=== PATIENT | male | born 1945 | race Caucasian/White ===

== ENCOUNTER → 2023-01-10 | Outpatient (CLI) | payer MEDICARE ==
[2023-01-10 15:12] LABS: INR 0.9 (<1.2); Prothrombin Time 9.7 sec (9.0-12.0)
[2023-01-10 20:56] LABS: HCT 41.3 % (39.6-50.0); HGB 13.7 d/dL (13.0-17.0); MCH 29.8 pg (27.0-32.0); MCHC 33.2 d/dL (32.0-37.0); MCV 89.8 FL (80.0-97.0); NRBC Per 100 WBC 0 X 10*3/uL (0.00-0.01); Platelet Count 263 X 10*3/uL (140-440); RDW 13.7 % (11.5-14.5); WBC 7.47 X 10*3/uL (4.50-10.00)
[2023-01-10 21:01] LABS: ALT 28 U/L (10-49); AST 22 U/L (14-35); Albumin 4.5 d/dL (3.8-4.9); Albumin/Globulin Ratio 1.96 Ratio (1.60-3.17); Alkaline Phosphatase 113 U/L (41-126); BUN/Creat Ratio 18.38 Ratio (12.00-20.00); Blood Urea Nitrogen 14.7 mg/dL (9.0-27.0); Calcium 9.3 mg/dL (8.7-10.3); Carbon Dioxide 24.3 mmol/L (21.6-31.8); Chloride 103 mmol/L (96-109); Globulin 2.3 d/dL (1.6-3.3); Glucose 101 mg/dL (70-110); Potassium 4.8 mmol/L (3.5-5.5); Sodium 139 mmol/L (135-145); Total Bilirubin 0.4 mg/dL (0.3-1.2); Total Protein 6.8 d/dL (6.2-8.2)
[2023-01-10 21:55] LABS: Appearance,Urine Clear (Clear); Bilirubin,Urine Negative (Negative); Blood,Urine Negative (Negative); Color,Urine Yellow (Yellow); Ketones,Urine Negative (Negative); Nitrite,Urine Negative (Negative); Specific Gravity,Urine 1.005 (1.001-1.030); Urobilinogen,Urine 0.2 E.U./DL
[2023-01-10 22:07] LABS: Bacteria,Urine None Seen (None Seen)
== END | disposition home or self-care (01) ==
LOC: LABWHC1 13:49
PROVIDERS: ATTEND Orthopaedic Surgery
DX: Z01.812 Encounter for preprocedural laboratory examination (principal); M17.12 Unilateral primary osteoarthritis, left knee; I45.19 Other right bundle-branch block; R94.31 Abnormal electrocardiogram [ECG] [EKG]
CPT/HCPCS: 36415; 80053; 81001; 85027; 85610; 85730; 87070; 93005

== ENCOUNTER 2023-01-29 09:37 | Day surgery (SDC) | payer MEDICARE ==
[~2023-01-29 09:37] MED LIST: ACETAMINOPHEN TAB 500 MG TAB PO PRN; DEXAMETHASONE SOD PHOSPHATE 4 MG/ML 1 ML VIAL IV ONE; GABAPENTIN 300 MG CAP PO PRN; HYDROcodone/APAP 7.5-325MG 1 EACH TAB PO PRN; HYDROmorphone 0.5 MG/0.5 ML SYRINGE IVP PRN; LIDOCAINE 1% (10MG/ML) FOR IV START INTRADERMA PRN; MAGNESIUM HYDROXIDE 2,400 MG/30 ML CUP PO PRN; MELOXICAM 7.5 MG TAB PO PRN; MIDAZOLAM 2 MG/2 ML VIAL IV PRN; NA PHOS,M-B/NA PHOS,DI-BA 133 ML ENEMA RECTAL PRN; NALOXONE 0.4 MG/ML 1 ML VIAL IV PRN; ONDANSETRON 4 MG/2 ML VIAL IVP ONE; ONDANSETRON 4 MG/2 ML VIAL IVP PRN; TRANEXAMIC 1,000 MG/100ML-NACL 1,000 MG in SALINE 1 100ML.BAG IVPB PRN; bisacodyL 10 MG SUPP RECTAL PRN
[2023-01-29] MEDS: LACTATED RINGERS 1,000 ML IV SCH (10:04)
[2023-01-29] MEDS ORDERED: MIDAZOLAM 2 MG/2 ML VIAL IVP ONE (10:50)
[2023-01-29] MEDS ORDERED: ceFAZolin 1,000 MG in SODIUM CHLORIDE 0.9% 1,000 ML IRRIGATION ONE (11:33)
[2023-01-29] MEDS ORDERED: LACTATED RINGERS 1,000 ML IV ONE ×2 (12:42)
--- NOTE | 2023-01-29 12:50 | P.OP ---
Date of Procedure: 01/29/23 Preoperative Diagnosis: Severe osteoarthritis left knee Postoperative Diagnosis: Severe osteoarthritis left knee Procedure(s) Performed: Left total knee arthroplasty Implants: [employer]hew Journey II CR Oxinium cruciate retaining femoral component size 7, left [employer] Journey nonporous tibial baseplate size 7, left [employer] Journey II, XLPE Deep Dished articular insert, size 11 mm, Size 7-8, left [employer] Journey Lucila II resurfacing patellar component, oval, 38 mm All components were cemented using Palacos R bone cement The articulation is Oxinium on polyethylene Anesthesia: spinal Surgeon: Usman Munoz [employer]porary Help [employer] Referral Clerk #1: Cassandra Medina Estimated Blood Loss (ml): 35 Pathology: none sent Condition: stable Disposition: PACU Indications for Procedure: The patient's knee is end-stage, and conservative management has failed. The operation of knee replacement has been discussed at length in the office, as well as potential risks and complications. These are inclusive of, but not limited to: Infection, bleeding, scarring, discomfort, stiffness, blood vessel and nerve damage, need for further surgery, failure to relieve symptoms, persistence, recurrence, or worsening of problems, loosening, dislocation, wear, blood clot, pulmonary embolism, , gait dysfunction, stiffness, and other risks as discussed in the office. Patient elects to proceed and the consent form has been signed. Operative Findings: The operative findings are consistent with severe osteoarthritis of the left knee Description of Procedure: The patient was seen in the preoperative area, the consent was reviewed and the operative site was marked with a skin marker. The patient verified the procedure and the operative site. An adductor canal pain catheter and an iPACK block were placed by anesthesia in the preoperative area. The patient was then brought to the operating room and positioned on the operating room table in the supine position. Preoperative antibiotics and a gram of tranexamic acid were given intravenously. A spinal anesthetic was administered by the anesthesia department. Care was taken to make sure that all pressure points were adequately padded. A tourniquet was placed on the upper thigh and the lower extremity was prepped with ChloraPrep and draped in usual sterile fashion. A universal time-out was then performed which confirmed the patient's name, surgical site, ALLERGIES, and consent. The lower extremity was then exsanguinated and tourniquet was inflated to 250 mmHg. A standard anterior midline approach to the knee was performed. The skin and subcutaneous tissue were sharply dissected down to the patellar tendon. A medial parapatellar arthrotomy was then performed. The knee was then extended, the patellar was everted, and the knee was flexed. The infra-patellar fat pad was removed in order to enhance exposure. The anterior horns of both menisci were excised, and a release was performed to the posterior medial aspect of the knee. On gross visual inspection, there was complete loss of articular cartilage in the medial and patellofemoral joint spaces. There was also significant cartilage damage in the lateral compartment. There were multiple periarticular osteophytes globally about the knee which were then removed with a Ronguer. The femoral canal was then opened with the 9.5 mm intramedullary drill. The 8 mm intramedullary neena was then inserted into the femoral canal with the distal femoral cutting guide set for 5 of valgus. The distal femoral cutting block was then pinned in place. The intramedullary neena was then removed, and the distal femur was then cut. The cutting block was then removed and the cut was checked for symmetry. The resected bone was then measured to confirm the appropriate distal femoral resection. Next, the sizing guide was then placed and set for 3 external rotation based off of the epicondylar axis and Mulvane's line. Pins were then placed and the drill holes, and the femur was sized with the sizing stylus. The pins were then removed, and the sizing guide was then removed. The spikes of the appropriate size femoral block was then placed into the predrilled holes, and malleted into place. Two 45 mm pins were then placed into the fixation holes on the cutting block. An annmarie wing was then used to ensure there would be no notching with the anterior cut. The anterior condyles were cut without notching. The anterior chord cut was then performed, followed by the posterior cut, posterior chamfer cut, and the anterior chamfer cut. The collateral ligaments were protected during the entire process. The cutting block was then removed. Any remaining bone and osteophytes were removed from the femur with a Ronguer. Attention was then directed to the tibia. The remaining ACL was removed with a Ronguer, and the tibia was then gently subluxed forward with a large bent knee retractor. Any remaining menisci were excised. The posterior lateral corner was cauterized in order to coagulate the lateral geniculate artery. The extra medullary tibial cutting guide was then placed, set for the appropriate rotation, slope, and depth of resection. The proximal tibia cutting guide was then pinned in place. Proximal tibia was then cut and sized. A curved osteotome was then used to remove any posterior osteophytes from the distal femur. The femoral trial was placed. A narrow saw blade was then used to remove the anterior intracondylar femoral bone. The CR notch trial was then placed. The tibial trial was placed with the appropriate-sized insert. The knee was able to fully extend and flex to 130 and was stable throughout all range of motion. The knee was then extended and the patella was everted. Patella was then measured, and then using an osteotomy guide, the patella was cut at the appropriate level. The patellar component was sized. The patellar drill guide was placed and the patella was drilled. The patella trial was then placed. The knee was then taken through range of motion with the patella trial and the patella tracked normally using the no thumbs technique. The patella trial was then removed. The knee was then flexed and lug holes were drilled through the femoral trial and the femoral trial was then removed. The tibial was then re- exposed, and the tibial broach guide was then pinned in place after it was set for the appropriate rotation to allow for the most coverage without overhang. The tibia was then reamed and broached. The femoral canal was plugged with autologous bone. The cut surfaces of bone were then irrigated with pulsatile lavage. The knee was also irrigated with Irrisept solution. The components were then opened, the cement was mixed. Cement was placed on the backside of the femoral, tibial, and patellar components. Cement was then applied to the tibial surface and pressurized into the surface using finger pressurization technique. The tibial component was then applied and excess cement was removed after it was impacted securely noted to be flush with the cut surface. In similar fashion, the cement was applied to the cut femoral surface, pressur ized and using finger pressurization the component was impacted in place. Excess cement was removed. The polyethylene spacer was then implanted and locked into position. Patellar component was then applied in a similar technique and the patellar clamp was used to hold patella in place while the cement hardened. The knee was held in full extension while the cement hardened. Once the cement had fully hardened, the knee was reinspected. Any other cement extrusion was removed the final range of motion testing showed range of motion from 0-130 with excellent stability, both medial and laterally and appropriate alignment of the leg. Patella tracked normally. After the cemented hardened, the tourniquet was released and hemostasis was obtained. A second gram of transexamic acid was given intravenously. The knee was again irrigated. The knee was again taken through range of motion and found to be stable throughout all range of motion of 0-130, and the patella tracked normally. The fascia was then closed with 0 Vicryl followed by #2 strata fix suture. The subcutaneous tissue was closed with 3-0 Vicryl and 3-0 strata fix. Exofin glue was used for the skin and placed with the knee in flexion. After the glue had dried, and Optafoam silver impregnated dressing was applied. A lightly compressive dressing was applied using web roll and Jaydon wrap. Patient was then transferred to the stretcher and taken to recovery room in stable condition. Sponge and needle counts were correct. The assistant community manager ADILSON Wheeler was required due the complexity surgery and the need for a skilled operating room surgical technician. She assisted in positioning, draping, retraction, and closure of the wound.
[2023-01-29] MEDS ORDERED: ROPIVACAINE 0.2%-NS ON-Q PUMP 2 MG/ML EACH MISCELLANE PRN (13:33)
--- NOTE | 2023-01-29 13:44 | XR ---
EXAMINATION TYPE: XR knee limited LT DATE OF EXAM: 01/29/2023 1:40 PM INDICATION: Patient age:Male; 78 years old; Reason for study: Evaluation for Postop abnormality and alignment; PHH. COMPARISON: None. TECHNIQUE: The Left knee(s) was examined in Frontal and crosstable lateral projections. FINDINGS: Postsurgical changes from total left knee arthroplasty. There are distal femoral and proxim al tibial components. Hardware appears intact with appropriate alignment. There is associated soft ti ssue gas and edema. No acute fracture or dislocation. IMPRESSION: Postsurgical changes from total left knee arthroplasty. Hardware appears intact with appropriate alig nment.
[2023-01-29] MEDS: SODIUM CHLORIDE 0.9% 1,000 ML IV SCH ×2 (16:13→16:25)
--- NOTE | 2023-01-29 20:49 | P.CONS ---
History of Present Illness - Reason for Consult Consult date: 01/29/23 Medical management Requesting physician: Usman Munoz - Chief Complaint Left knee surgery - History of Present Illness Very pleasant 78-year-old patient who follows with Dr. Crystal. Has undergone left total knee arthroplasty. Postprocedure pain is controlled. No nausea vomiting. Denies any cardiac history. Patient failed outpatient treatment. Also takes medication for hypertension. And [id number] medications for BPH. Postprocedure laying in bed comfortable. Review of systems: GEN.: None EYES: None HEENT: None NECK: None RESPIRATORY: None CARDIOVASCULAR: None GASTROINTESTINAL: None GENITOURINARY: None MUSCULOSKELETAL: Arthritis LYMPHATICS: None HEMATOLOGICAL: None PSYCHIATRY: None NEUROLOGICAL: None Past medical history to include: Osteoarthritis, hypertension, BPH Social history: Patient smoked over 30 years ago. No alcohol. 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 Physical examination: VITAL SIGNS: 97.2, 79, 16, 129/79, 98% on 2 L GENERAL: BMI 30.5, declining A comfortable. EYES: Pupils equal. Conjunctiva normal. HEENT: External appearance of nose and ears normal, oral cavity grossly normal. NECK: JVD not raised; masses not palpable. HEART: First and second heart sounds are normal; no edema. LUNGS: Respiratory rate normal; clear to auscultation. ABDOMEN: Soft, nontender, liver spleen not palpable, no masses palpable. PSYCH: Alert and oriented x3; mood and affect normal. MUSCULOSKELETAL:No Clubbing/cyanosis;muscles-grossly intact. OA. Dressing over the left knee. NEUROLOGICAL: Cranial nerves grossly intact; no facial asymmetry, power and sensation grossly intact. LYMPHATICS: No lymph nodes palpable in the axilla and neck INVESTIGATIONS, reviewed in the clinical context: 01/10/2023: White count 7.4 hemoglobin 13.7 platelets 263 sodium 139 potassium 4.8 creatinine 0.8 Assessment and plan: -Left total knee arthroplasty. Aspirin for DVT prophylaxis. IV Ancef for infection prophylaxis. -Essential hypertension Lisinopril -BPH Patient takes mlfq-qzl-xrsnuzk saw palmetto -Primary osteoarthritis Tylenol as needed Care was discussed the patient and questions answered. Thank you Dr. Munoz Past Medical History Past Medical History: Hypertension, Osteoarthritis (OA) Additional Past Medical History / Comment(s): left knee pain History of Any Multi-Drug Resistant Organisms: None Reported Past Surgical History: Appendectomy, Back Surgery Additional Past Surgical History / Comment(s): colonoscopy Past Anesthesia/Blood Transfusion Reactions: No Reported Reaction Past Psychological History: No Psychological Hx Reported Smoking Status: Former smoker Past Alcohol Use History: None Reported Additional Past Alcohol Use History / Comment(s): quit 30 yrs ago, 1-2 ppd Past Drug Use History: None Reported - Past Family History Father Additional Family Medical History / Comment(s): wt issues, didnt take care of himself. Mother Family Medical History: No Reported History Brother(s) Family Medical History: Diabetes Mellitus Medications and Allergies Home Medications Medication Instructions Recorded Confirmed Type Unk Saw [place] 1 tab PO DAILY 01/23/23 01/23/23 History Unk Stool Softner 1 tab PO DAILY 01/23/23 01/23/23 History lisinopriL [Zestril] 20 mg PO DAILY 01/23/23 01/29/23 History traMADol HCL 50 mg PO Q6H PRN 01/23/23 01/29/23 History Aspirin 325 mg PO BID #60 tab 01/29/23 Rx HYDROcodone/APAP 7.5-325MG [[place] 1 - 2 tab PO Q6H PRN #32 tab 01/29/23 Rx 7.5-325] Sennosides [Senokot] 2 tab PO DAILY PRN #60 tablet 01/29/23 Rx Allergies Allergy/AdvReac Type Severity Reaction Status Date / Time No Known Allergies Allergy Verified 01/29/23 09:52 Physical Exam Vitals: Vital Signs Temp Pulse Resp BP Pulse Ox 01/29/23 15:26 79 16 129/79 98 01/29/23 14:55 67 16 119/74 98 01/29/23 14:30 71 16 113/69 99 01/29/23 14:17 69 16 107/62 97 01/29/23 14:02 66 16 115/75 98 01/29/23 13:47 66 16 111/67 99 01/29/23 13:32 75 16 106/71 94 L 01/29/23 13:17 97.2 F L 81 16 97/57 95 01/29/23 11:14 68 16 123/67 99 01/29/23 09:59 97.1 F L 76 16 132/78 97 Intake and Output 01/29/23 01/29/23 01/29/23 06:59 14:59 22:59 Intake Total 1201 Output Total 35 Balance 1166 Intake: IV 1201 Output: Estimated Blood Loss 35 Other: Weight 99.2 kg 99.2 kg
[2023-01-29] MEDS ORDERED: SENNOSIDES-DOCUSATE SODIUM 1 EACH TAB PO SCH (21:00)
[2023-01-29] MEDS: ASPIRIN 325 MG TAB PO SCH (21:25)
[2023-01-29] MEDS: HYDROcodone/APAP 7.5-325MG 1 EACH TAB PO PRN (21:26)
[2023-01-30] MEDS: HYDROcodone/APAP 7.5-325MG 1 EACH TAB PO PRN ×2 (04:11→10:26)
[2023-01-30] MEDS: LACTATED RINGERS 1,000 ML IV SCH (06:22)
--- NOTE | 2023-01-30 07:02 | P.PN ---
Progress Note - Text Progress Note Date: 01/30/23 Postoperative day # 1 status post total knee arthroplasty, and adductor canal catheter placed for postoperative analgesia, currently at ropivacaine 0.2% 8 mL per hour and continuous infusion, visual analogue scale is 3/10, patient using oral pain medication for breakthrough pain. Assessment and plan= Acute postoperative pain, adductor canal catheter for pain control, pain is well controlled we'll continue the same management.
[2023-01-30 07:50] VITALS: BP 105/63; PULSE 78; RESP 17; TEMP 97.9
[2023-01-30] MEDS ORDERED: lisinopriL 20 MG TAB PO SCH (09:00)
[2023-01-30] MEDS: ASPIRIN 325 MG TAB PO SCH (09:11)
[2023-01-30 09:20] LABS: Basophils % (A) 0 %; Eosinophils # (A) 0.1 k/uL (0-0.7); Eosinophils % (A) 0 %; HCT 35.7 % (39.0-53.0); HGB 11.4 gm/dL (13.0-17.5); Lymphocytes % (A) 17 %; MCH 29.7 pg (25.0-35.0); MCHC 31.9 g/dL (31.0-37.0); MCV 93.2 fL (80.0-100.0); Mean Platelet Volume 9.2; Monocytes # (A) 0.6 k/uL (0-1.0); Monocytes % (A) 5 %; Neutrophils # (A) 8.8 k/uL (1.3-7.7); Neutrophils % (A) 76 %; Platelet Count 219 k/uL (150-450); RBC 3.83 m/uL (4.30-5.90); RDW 13.7 % (11.5-15.5); WBC 11.6 k/uL (3.8-10.6)
--- NOTE | 2023-01-30 10:26 | P.DS ---
Providers Expected date of discharge: 01/30/23 Attending physician: Usman Munoz Consults: 01/29/23 16:24 Consult Physician Routine Consulting Provider: Jeffy Pereira Consult Reason/Comments: medical management Do you want consulting provider notified?: Yes Primary care physician: Andrea Crystal - Discharge Diagnosis(es) (1) Osteoarthritis of left knee Current Visit: Yes Status: Acute (2) Status post total left knee replacement Current Visit: Yes Status: Acute Hospital Course: This is a 78-year-old male with known history of degenerative arthritis of the left knee. The patient presented for evaluation as an outpatient. After discussion and consideration patient elects to proceed with total knee arthroplasty. The patient is seen preoperatively by Dr. Munoz and medically cleared for surgery by their primary care physician. Patient is admitted to [facility] on 01/29/2023 for total knee arthroplasty. The procedure is performed without complication or sequelae. The patient is doing well postoperatively. Labs and vital signs are stable on day of discharge. On day of discharge patient's knee incision is healing well. There is minimal erythema. There is no drainage noted at this time. There is minimal soft tissue swelling to the knee. Patient has full foot and ankle motion without difficulty or pain. Calf is soft and nontender to palpation. Neurovascular status to the left lower extremity is intact. Patient is discharged home in good condition. Please see med rec for accurate list of home medications. Plan - Discharge Summary Discharge Rx Participant: No New Discharge Prescriptions: New Sennosides [Senokot] 2 tab PO DAILY PRN #60 tablet PRN Reason: Constipation Aspirin 325 mg PO BID #60 tab HYDROcodone/APAP 7.5-325MG [[place] 7.5-325] 1 - 2 tab PO Q6H PRN #32 tab PRN Reason: Pain No Action traMADol HCL 50 mg PO Q6H PRN PRN Reason: Pain lisinopriL [Zestril] 20 mg PO DAILY Unk Stool Softner 1 tab PO DAILY Unk Saw [place] 1 tab PO DAILY Discharge Medication List Unk Saw [place] 1 tab PO DAILY 01/23/23 [History] Unk Stool Softner 1 tab PO DAILY 01/23/23 [History] lisinopriL [Zestril] 20 mg PO DAILY 01/23/23 [History] traMADol HCL 50 mg PO Q6H PRN 01/23/23 [History] Aspirin 325 mg PO BID #60 tab 01/30/23 [Rx] HYDROcodone/APAP 7.5-325MG [[place] 7.5-325] 1 - 2 tab PO Q6H PRN #32 tab 01/30/23 [Rx] Sennosides [Senokot] 2 tab PO DAILY PRN #60 tablet 01/30/23 [Rx] Follow up Appointment(s)/Referral(s): Usman Munoz DO [Doctor of Osteopathic Medicine] - 2 Weeks Ambulatory/Diagnostic Orders: Ambulatory Physical Therapy Order [THER.AMB] Location: None Selected Activity/Diet/Wound Care/Special Instructions: Weightbearing as tolerated with a walker. CPM 5-6h daily as tolerated. Leave dressing intact. Dressing may be removed by home care nurse or by patient in 7 days. Then change dressing twice daily until follow up. May shower with initial dressing intact and after removal. If dressing become saturated, please remove. Recommend use of compression stockings daily until follow up to help prevent swelling and blood clots. May remove at night before sleeping. Please take aspirin 325mg twice daily for 30 days to prevent blood clots. Please follow up with [facility] and call with any questions or concerns, . Discharge Disposition: HOME WITH HOME HEALTH SERVICES
--- NOTE | 2023-01-30 18:23 | P.PN ---
Progress Note - Text Progress Note Date: 01/30/23 - Chief Complaint Left knee surgery Hospital course Very pleasant 78-year-old patient who follows with Dr. Crystal. Has undergone left total knee arthroplasty. Postprocedure pain is controlled. No nausea vomiting. Denies any cardiac history. Patient failed outpatient treatment. Also takes medication for hypertension. And ruxv-pvm-[id number] medications for BPH. Postprocedure laying in bed comfortable. January 30: Stable. Did ambulate. No dizziness no lightheadedness. Patient told to check his blood pressure daily. Lisinopril was discussed. Questions answered. Medications reviewed Past medical history to include: Osteoarthritis, hypertension, BPH Social history: Patient smoked over 30 years ago. No alcohol. 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 Physical examination: VITAL SIGNS: 97.9, 78, 17, 105/63, 96% room air GENERAL: comfortable. EYES: Pupils equal. Conjunctiva normal. HEENT: External appearance of nose and ears normal, oral cavity grossly normal. NECK: JVD not raised; masses not palpable. HEART: First and second heart sounds are normal; no edema. LUNGS: Respiratory rate normal; clear to auscultation. ABDOMEN: Soft, nontender, liver spleen not palpable, no masses palpable. PSYCH: Alert and oriented x3; mood and affect normal. MUSCULOSKELETAL:No Clubbing/cyanosis;muscles-grossly intact. OA. Dressing over the left knee. INVESTIGATIONS, reviewed in the clinical context: 01/10/2023: White count 7.4 hemoglobin 13.7 platelets 263 sodium 139 potassium 4.8 creatinine 0.8 Assessment and plan: -Left total knee arthroplasty. Aspirin for DVT prophylaxis. IV Ancef for infection prophylaxis. -Essential hypertension Lisinopril -BPH Patient takes wvqe-ehm-[id number] saw palmetto -Primary osteoarthritis Tylenol as needed Discussed with patient. Blood pressure medications discussed. Thank you Dr. Munoz Past Medical History Past Medical History: Hypertension, Osteoarthritis (OA) Additional Past Medical History / Comment(s): left knee pain History of Any Multi-Drug Resistant Organisms: None Reported Past Surgical History: Appendectomy, Back Surgery Additional Past Surgical History / Comment(s): colonoscopy Past Anesthesia/Blood Transfusion Reactions: No Reported Reaction Past Psychological History: No Psychological Hx Reported Smoking Status: Former smoker Past Alcohol Use History: None Reported Additional Past Alcohol Use History / Comment(s): quit 30 yrs ago, 1-2 ppd Past Drug Use History: None Reported
--- NOTE | 2023-01-30 18:36 | P.ANPRN ---
Procedure Note - Anesthesia - Nerve Block Performed Left Adductor Canal Infusion Time Out Performed: Yes Date of Procedure: 01/29/23 Procedure Start Time: 10:50 Procedure Stop Time: 11:02 Location of Patient: PreOp Indication: Acute Post-Operative Pain, Requested by Surgeon Sedation Type: Sedate with meaningful contact maintained Preparation: Sterile Prep, Sterile Dressing Position: Supine Catheter: Indwelling Needle Types: Pajunk Needle Gauge: 21 Ultrasound used to visualize needle placement: Yes Ultrasound used to observe medication spread: Yes Blood Aspirated: No Pain Paresthesia on Injection Noted: No Resistance on Injection: Normal Image Stored and Saved: Yes Events: Uneventful and Well Tolerated (Ropivacaine 0.5% 20 mL plus dexamethasone 4mg)
--- NOTE | 2023-01-30 18:37 | P.ANPRN ---
Procedure Note - Anesthesia - Nerve Block Performed Left iPack Single Time Out Performed: Yes Date of Procedure: 01/29/23 Procedure Start Time: 11:03 Procedure Stop Time: 11:05 Location of Patient: PreOp Indication: Acute Post-Operative Pain, Requested by Surgeon Sedation Type: Sedate with meaningful contact maintained Preparation: Sterile Prep Position: Supine Needle Types: Pajunk Needle Gauge: 21 Ultrasound used to visualize needle placement: Yes Ultrasound used to observe medication spread: Yes Blood Aspirated: No Pain Paresthesia on Injection Noted: No Resistance on Injection: Normal Image Stored and Saved: Yes Events: Uneventful and Well Tolerated (Ropivacaine 0.5% 25 mL plus dexamethasone 4 mg)
== END 2023-01-30 12:54 | disposition home health service (06) ==
LOC: OR 09:37 → 4SSUR 13:17 → OR 01-30 12:54
PROVIDERS: ATTEND Orthopaedic Surgery
DX: M17.12 Unilateral primary osteoarthritis, left knee (principal); I10 Essential (primary) hypertension; N40.0 Benign prostatic hyperplasia without lower urinary tract symptoms; Z79.82 Long term (current) use of aspirin; Z87.891 Personal history of nicotine dependence; Z79.899 Other long term (current) drug therapy
CPT/HCPCS: 97162; 64999; 64448; 85025; 73560; 27447; C1713; C1776; C1751; J2250; J1100; J0690 ×3; J2405; J2795